=== PATIENT | male | born 1985 | race Caucasian/White ===

== ENCOUNTER 2017-07-14 15:14 | Emergency (ER) | payer SELFPAY ==
--- NOTE | ~2017-07-14 | ER ---
PATIENT'S NAME: HERNAN CARRIZALES [facility] AGE: 32 Y [address] ROOM: [place] [address] LOCATION: [facility] ADMIT DATE: 07/14/2017 ER/Outpatient Report DISCHARGE DATE: 07/14/2017 FAMILY PHYSICIAN: PHYSICIAN, NO ATTENDING PHYSICIAN: Gómez Brown Time of Arrival: 1514 hours. CHIEF COMPLAINT: Rash. HISTORY OF PRESENT ILLNESS: The patient is a 32-year-old male who presents to the emergency department today with a chief complaint of rash. He reports this started about 3 days prior to arrival. It is really itching. The patient was swimming in a [place] and it developed after that. He denies any other exposures, no new soaps, no new detergents. He does report some nausea. No vomiting. Denies any shortness of breath. No fevers or chills. He has tried some calamine lotion without any relief. PAST MEDICAL HISTORY: None. PAST SURGICAL HISTORY: Shoulder. SOCIAL HISTORY: The patient denies any tobacco use. Reports seldom alcohol use. Denies any illicit drug use. ALLERGIES: NO KNOWN DRUG ALLERGIES. MEDICATIONS: Baby aspirin. PRIMARY CARE DOCTOR: None. REVIEW OF SYSTEMS: All systems are reviewed by myself and are negative with the exception of those discussed in HPI and past medical history. PHYSICAL EXAMINATION: VITAL SIGNS: Weight 134.6 kg. Blood pressure 164/96, pulse 81, respiratory PATIENT'S NAME: HERNAN CARRIZALES [facility] AGE: 32 Y [address] ROOM: [place] [address] LOCATION: [facility] ADMIT DATE: 07/14/2017 ER/Outpatient Report DISCHARGE DATE: 07/14/2017 FAMILY PHYSICIAN: PHYSICIAN, NO ATTENDING PHYSICIAN: Gómez Brown rate 16, temperature 98.3, and oxygen saturation 96% on room air. GENERAL: The patient is a 32-year-old male who appears stated age, in no acute distress. HEENT: Head: Normocephalic, atraumatic. Pupils are equal, round, and reactive to light. Oropharynx is clear. NECK: Supple. There is no nuchal rigidity. CARDIOVASCULAR: Regular rate and rhythm. No murmurs, rubs, or gallops. LUNGS: Clear to auscultation bilaterally. No wheezes, rales, or rhonchi. ABDOMEN: Soft, nontender, and nondistended. No rebound, rigidity, or guarding. MUSCULOSKELETAL: The patient moves all 4 extremities. SKIN: The patient does have linear streaks to bilateral legs with patchy erythematous plaque-type lesions on the posterior aspect of his legs. He also has multiple ulceration-type vesicles on the feet in between webbing of the toes. LABORATORY DATA AND X-RAYS: None. IMPRESSION: 1. Contact dermatitis. 2. Initial visit. EMERGENCY DEPARTMENT COURSE: The patient brought back to the examination room. Seen and evaluated by myself. History and physical is performed as described above. I have discussed the results of the history and physical with the patient's family at the bedside. I have written a prescription for prednisone for home as well as [place] for pain with sedation warning. I have discussed he continues calamine lotion as well as Benadryl over the counter for the itching. I have discussed return to care instructions including worsening symptoms or any other concerns to return to the emergency department as soon as possible. The patient is agreeable without further questions at this time. DISPOSITION: The patient is discharged to home in good condition. DO KAUSHAL FREITAS/michellel PATIENT'S NAME: HERNAN CARRIZALES [facility] AGE: 32 Y [address] ROOM: [place] [address] LOCATION: [facility] ADMIT DATE: 07/14/2017 ER/Outpatient Report DISCHARGE DATE: 07/14/2017 FAMILY PHYSICIAN: PHYSICIAN, NO ATTENDING PHYSICIAN: Gómez Brown /[id number] d: 07/14/172022 t: 07/21/171925, OUTPATIENT REPORT
== END 2017-07-14 15:44 | disposition disaster alternative care site (69) ==
LOC: GMED 15:14
DX: L25.9 Unspecified contact dermatitis, unspecified cause (principal); Z79.82 Long term (current) use of aspirin